=== PATIENT | male | born 2005 | race Caucasian/White ===

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

== ENCOUNTER 2023-04-05 12:58 | Emergency (ER) | payer MEDICAID ==
[~2023-04-05] VITALS: Ht 175 cm; Wt 66.0 kg
--- NOTE | 2023-04-05 13:35 | ED Integumentary General ---
"General Chief Complaint: Skin/Wound Problems Stated Complaint: RASH | POSSIBLE CHICKEN POX Nursing Triage Note: PT AMB TO RM 7 PT CO OF RASH ALL OVER BODY STATES MIGHT BE CHICKEN POX, PT STATES STARTED BREAKING OUT 3 DAYS AGO. PT CO OF LOW BACK AND THROAT PAIN. PT HAS LESIONS ALL OVER BODY INCLUDING INSIDE MOUTH AND HAIR. PT HAS NOT BEEN VACCINATED AGAINST CHICKEN POX BUT HAS HAD WHEN SMALL CHILD. PT CO OF AREAS ITCHING Source: patient, family Exam Limitations: no limitations History of Present Illness Date Seen by Provider: Apr 05, 2023 Time Seen by Provider: 13:32 Initial Comments Patient is a 17-year-old male who presents ED with mother for diffuse red burning itchy rash. Started on his abdomen with erythematous base with blisters. This has spread throughout the body. Rash is worse on the face. Reports some oral lesions with throat pain. Patient reports history of chickenpox when he was younger. Mother is up-to-date on his immunizations. Patient states he felt feverish today. He had no previous URI symptoms before the rash such as body aches, chills, cough, runny nose. Denies of any current medication. Denies of any sloughing of the skin. Denies of any dysuria, hematuria, abdominal pain, vomiting, headache, dizziness. Patient has been taken Benadryl without much improvement. Allergies and Home Medications Allergies Coded Allergies: amoxicillin (Unverified Allergy, Mild, 04/24/09) Patient Home Medication List Home Medication List Reviewed: Yes Hydroxyzine HCl (Hydroxyzine HCl) 25 Mg Tablet, 25 MG PO Q6H PRN for ITCHING Prescribed by: JACKIE MCKEON on 04/05/23 1511 Review of Systems Review of Systems Constitutional: No chills, No diaphoresis, No fever; malaise, weakness EENTM: No ear pain, No blurred vision, No double vision Respiratory: No cough, No dyspnea on exertion, No short of breath Cardiovascular: No chest pain Gastrointestinal: No abdominal pain, No diarrhea, No nausea, No vomiting Genitourinary: No decreased output, No discharge Musculoskeletal: No back pain, No joint pain, No joint swelling Skin: change in color, pruritus, rash All Other Systems Reviewed Negative Unless Noted: Yes Past Pymstyg-Owbarf-Fqmxid Hx Patient Social History Tobacco Use?: No Substance use?: No Alcohol Use?: No Immunizations Up To Date Tetanus Booster (TDap): Less than 5yrs PED Vaccines UTD: Yes Past Medical History Surgeries: Yes (PROCEDURE ON BOIL-WHEN PT. WAS 4) Respiratory: No Cardiac: No Neurological: No Reproductive Disorders: No Gastrointestinal: No Musculoskeletal: No Endocrine: No Cancer: No Psychosocial: No Integumentary: No Blood Disorders: No Family Medical History No Pertinent Family Hx Physical Exam Vital Signs Vital Signs - First Documented 04/05/23 04/05/23 13:10 15:17 Temp 38.7 Pulse 102 Resp 18 B/P (MAP) 138/84 (102) Pulse Ox 98 O2 Delivery Room Air Capillary Refill : Less Than 3 Seconds General Appearance: WD/WN, no apparent distress HEENT: PERRL/EOMI, normal ENT inspection, TMs normal, pharynx normal Neck: non-tender, full range of motion, supple Cardiovascular: regular rate, rhythm, no edema, no gallop Gastrointestinal: normal bowel sounds, soft Extremities: normal range of motion 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 No bullous. Erythematous blisters in the oropharynx. No sloughing of the skin.) Progress/Results/Core Measures Results/Orders Lab Results Laboratory Tests Test 04/05/23 14:00 04/05/23 14:39 Range/Units White Blood Count 6.2 4.3-11.0 10^3/uL Red Blood Count 4.46 4.30-5.52 10^6/uL Hemoglobin 14.2 13.3-17.7 g/dL Hematocrit 41 40-54 % Mean Corpuscular Volume 91 80-99 fL Mean Corpuscular Hemoglobin 32 25-34 pg Mean Corpuscular Hemoglobin Concent 35 32-36 g/dL Red Cell Distribution Width 12.8 10.0-14.5 % Platelet Count 86 L 130-400 10^3/uL Mean Platelet Volume 13.1 H 9.0-12.2 fL Immature Granulocyte % (Auto) 1 % Neutrophils (%) (Auto) 50 42-75 % Lymphocytes (%) (Auto) 36 12-44 % Monocytes (%) (Auto) 11 0-12 % Eosinophils (%) (Auto) 2 0-10 % Basophils (%) (Auto) 1 0-10 % Neutrophils # (Auto) 3.1 1.8-7.8 10^3/uL Lymphocytes # (Auto) 2.2 1.0-4.0 10^3/uL Monocytes # (Auto) 0.7 0.0-1.0 10^3/uL Eosinophils # (Auto) 0.1 0.0-0.3 10^3/uL Basophils # (Auto) 0.0 0.0-0.1 10^3/uL Immature Granulocyte # (Auto) 0.0 0.0-0.1 10^3/uL Neutrophils % (Manual) 45 % Lymphocytes % (Manual) 25 % Monocytes % (Manual) 15 % Eosinophils % (Manual) 0 % Basophils % (Manual) 0 % Band Neutrophils 8 % Reactive Lymphocytes 7 % Percent Immature Platelet Fraction 19.3 H 0.0-7.6 % Blood Morphology Comment NORMAL Erythrocyte Sedimentation Rate 3 0-15 MM/HR Prothrombin Time 15.2 H 12.2-14.7 SEC INR Comment 1.2 0.8-1.4 Activated Partial Thromboplast Time 38 H 24-35 SEC Sodium Level 137 135-145 MMOL/L Potassium Level 3.6 3.6-5.0 MMOL/L Chloride Level 104 98-107 MMOL/L Carbon Dioxide Level 20 L 21-32 MMOL/L Anion Gap 13 5-14 MMOL/L Blood Urea Nitrogen 13 7-18 MG/DL Creatinine 0.95 0.60-1.30 MG/DL Estimat Glomerular Filtration Rate 118 BUN/Creatinine Ratio 14 Glucose Level 91 70-105 MG/DL Calcium Level 9.1 8.5-10.1 MG/DL Corrected Calcium 8.8 8.5-10.1 MG/DL Total Bilirubin 0.6 0.1-1.0 MG/DL Aspartate Amino Transf (AST/SGOT) 79 H 5-34 U/L Alanine Aminotransferase (ALT/SGPT) 92 H 0-55 U/L Alkaline Phosphatase 57 40-136 U/L C-Reactive Protein High Sensitivity 3.24 H 0.00-0.50 MG/DL Total Protein 6.7 6.4-8.2 GM/DL Albumin 4.4 3.2-4.5 GM/DL Group A Streptococcus Screen NEGATIVE NEGATIVE My Orders Orders - AYALA,TATIANA A PA Erythrocyte Sedimentation Rate (04/05/23 13:29) Hs C Reactive Protein (04/05/23 13:29) Cbc With Automated Diff (04/05/23 13:29) Comprehensive Metabolic Panel (04/05/23 13:29) Rapid Strep A Screen (04/05/23 13:29) Partial Thromboplastin Time (04/05/23 14:50) Protime With Inr (04/05/23 14:50) Manual Differential (04/05/23 14:00) Hydroxyzine Cap/Tab (Vistaril) (04/05/23 15:00) Throat Culture Strep A Confirm (04/05/23 14:39) Medications Given in ED Current Medications Medications Dose Ordered Sig/Holly Route Start Time Stop Time Status Last Admin Dose Admin Hydroxyzine Pamoate 25 mg ONCE ONCE PO 04/05/23 15:00 04/05/23 15:01 DC 04/05/23 15:03 25 MG Vital Signs/I&O 04/05/23 04/05/23 13:10 15:17 Temp 38.7 38.7 Pulse 102 94 Resp 18 18 B/P (MAP) 138/84 (102) 127/80 Pulse Ox 98 99 O2 Delivery Room Air Blood Pressure Mean: 102 Departure Communication (PCP) Patient presents ED with mother for diffuse red itchy burning rash. Started on his abdomen has spread throughout his body. Oral lesions, felt feverish today. No vomiting, diarrhea, cough, runny nose or prodrome symptoms. Up-to-date on his immunization after talking to mother. On exam erythematous base with blisters. Few crusted lesion. Concerning for varicella associated rash. Does have oral lesions. Blisters noted to the oropharynx. No sloughing of the skin. No current medication that he takes daily. No known autoimmune disease. No obvious exposure to anybody that has been sick. On exam lesions do appear to be chickenpox with the different stages. Did give hydroxyzine for the itching. CBC, CMP and strep was ordered. Strep A was negative. Normal white blood count and red blood count. ALT 92, AST 78. Normal kidney function. Platelets 86. Suspect that this is viral due to the changes in his lab work. Discussed conservative treatment at this time. Tylenol and ibuprofen at home for pain. Will discharge with meclizine. If any worsening symptoms such as fever, unable to eat, dehydration to return back to ED. Follow-up your PCP in 2 to 3 days for reevaluation. If any bleeding, purpura to return back to ED. Slight change in his PT 15.2 and PTT 38. INR 1.2. Nonspecific but continue monitoring for DIC. Impression Primary Impression: Rash Disposition: HOME, SELF-CARE Condition: Stable Departure-Patient Inst. Decision time for Depature: 15:07 Referrals: PIERCE JUAREZ MD (PCP/Family) Primary Care Physician Patient Instructions: Skin Rash (DC) Add. Discharge Instructions: May use hydroxyzine instead of Benadryl for itching if needed. Continue with Tylenol ibuprofen or calamine lotion. If worsening symptoms such as not eating, vomiting, weakness to return back to ED. Follow-up with results of the swab. Recommend isolation All discharge instructions reviewed with patient and/or family. Voiced understanding. Scripts Hydroxyzine HCl (Hydroxyzine HCl) 25 Mg Tablet 25 MG PO Q6H PRN for ITCHING, #12 TAB Prov: TATIANA AYALA 04/05/23 TATIANA AYALA Apr 05, 2023 13:35"
[2023-04-05 14:07] LABS: BASOPHILS % (AUTO) 1 % (0-10); EOSINOPHILS # (AUTO) 0.1 10^3/uL (0.0-0.3); MEAN PLATELET VOLUME 13.1 fL (9.0-12.2)
[2023-04-05 14:09] LABS: EOSINOPHILS % (AUTO) 2 % (0-10); HEMATOCRIT 41 % (40-54); HEMOGLOBIN 14.2 g/dL (13.3-17.7); LYMPHOCYTES # (AUTO) 2.2 10^3/uL (1.0-4.0); LYMPHOCYTES % (AUTO) 36 % (12-44); MEAN CORPUSCULAR HEMOGLOBIN 32 pg (25-34); MEAN CORPUSCULAR HGB CONC 35 g/dL (32-36); MEAN CORPUSCULAR VOLUME 91 fL (80-99); MONOCYTES # (AUTO) 0.7 10^3/uL (0.0-1.0); MONOCYTES % (AUTO) 11 % (0-12); NEUTROPHILS # (AUTO) 3.1 10^3/uL (1.8-7.8); NEUTROPHILS % (AUTO) 50 % (42-75); PLATELET COUNT 86 10^3/uL (130-400); WHITE BLOOD COUNT 6.2 10^3/uL (4.3-11.0)
[2023-04-05 14:16] LABS: ALBUMIN 4.4 GM/DL (3.2-4.5)
[2023-04-05 14:17] LABS: POTASSIUM 3.6 MMOL/L (3.6-5.0)
[2023-04-05 14:18] LABS: CALCIUM 9.1 MG/DL (8.5-10.1)
[2023-04-05 14:19] LABS: TOTAL PROTEIN 6.7 GM/DL (6.4-8.2)
[2023-04-05 14:21] LABS: BILIRUBIN,TOTAL 0.6 MG/DL (0.1-1.0)
[2023-04-05 14:23] LABS: CREATININE SERUM 0.95 MG/DL (0.60-1.30)
[2023-04-05 14:52] LABS: BAND NEUTROPHILS 8 %; NEUTROPHILS % (MANUAL) 45 %
[2023-04-05 14:53] LABS: BASOPHILS % (MANUAL) 0 %; EOSINOPHILS % (MANUAL) 0 %; LYMPHOCYTES % (MANUAL) 25 %; MONOCYTES % (MANUAL) 15 %; RBC MORPH NORMAL; REACTIVE LYMPHOCYTES 7 %
[2023-04-05 14:56] LABS: ERYTHROCYTE SEDIMENTATION RATE 3 MM/HR (0-15)
[2023-04-05] MEDS ORDERED: hydrOXYzine (VISTARIL/ATARAX) 25 MG capsule/tablet PO ONE (15:00)
[2023-04-05 15:03] LABS: INR 1.2 (0.8-1.4); PROTHROMBIN TIME PATIENT 15.2 SEC (12.2-14.7)
[2023-04-05] MEDS ORDERED: HYDR-700 PO (15:11)
[2023-04-05 15:17] VITALS: BP 127/80
== END 2023-04-05 15:17 | disposition home or self-care (01) ==
LOC: EDUNIT# 12:58 → ER 13:01
DX: R21 Rash and other nonspecific skin eruption (principal); Z86.19 Personal history of other infectious and parasitic diseases
CPT/HCPCS: 36415; 80053; 85007; 85025; 85027; 85610; 85652; 85730; 86141; 87430

== ENCOUNTER 2023-04-08 17:03 | Observation (INO) | payer MEDICAID ==
[~2023-04-08] VITALS: Ht 175 cm; Wt 67.2 kg
[~2023-04-08 17:03] MED LIST changes: +HYDR-700 PO
--- NOTE | 2023-04-08 17:45 | ED Integumentary General ---
General Chief Complaint: Skin/Wound Problems Stated Complaint: RASH/POSS CHICKEN POX Nursing Triage Note: Patient reports to ED for possible "chicken pox". Patient started getting red papules since Saturday. Patient got worse on Saturday and was seen here. Patient returns today due to worsening. Patient states he has a hard time eating due to discomfort. Per patient his hands hurt. Patient ambulated to room 09. Mom and step dad at bedside. Source: patient, family Exam Limitations: no limitations (TATIANA AYALA) History of Present Illness Date Seen by Provider: Apr 08, 2023 Time Seen by Provider: 17:44 Initial Comments Patient Is a 17-year-old male who presents ED with a diffuse red burning rash. This started last Saturday on his abdomen and has spread throughout. Had a swab performed at [facility] last week. Patient has not received the results. Was seen here Saturday concern for chickenpox and recommended conservative treatment with anti-inflammatories, hydroxyzine and/or Benadryl. Patient states the rash is getting worse. Difficulty eating. Only eating popsicles. Contact his primary care physician was sent to the ED for further evaluation. Denies any vomiting, diarrhea, fever, chills, body aches, chest pain, shortness of breath, cough. (TATIANA AYALA) Allergies and Home Medications Allergies Coded Allergies: amoxicillin (Unverified Allergy, Mild, 04/24/09) Patient Home Medication List Home Medication List Reviewed: Yes (TATIANA AYALA) Hydroxyzine HCl (Hydroxyzine HCl) 25 Mg Tablet, 25 MG PO Q6H PRN for ITCHING Prescribed by: JACKIE MCKEON on 04/05/23 1511 Review of Systems Review of Systems Constitutional: No chills, No diaphoresis, No malaise, No weakness EENTM: No ear pain, No blurred vision, No double vision Respiratory: No cough, No dyspnea on exertion Cardiovascular: No chest pain Gastrointestinal: No abdominal pain, No diarrhea, No nausea, No vomiting Genitourinary: No decreased output, No discharge Musculoskeletal: No back pain, No joint pain, No joint swelling, No muscle pain Skin: change in color (TATIANA AYALA) All Other Systems Reviewed Negative Unless Noted: Yes (TATIANA AYALA) Past Pbsfrzr-Synezt-Zqkqqa Hx Patient Social History Tobacco Use?: No Use of E-Cig and/or Vaping dev: No Substance use?: No Alcohol Use?: No Pt feels they are or have been: No (TATIANA AYALA) Immunizations Up To Date Tetanus Booster (TDap): Less than 5yrs PED Vaccines UTD: Yes Influenza Vaccine Up-to-Date: Yes; Up-to-Date (TATIANA AYALA) Past Medical History Surgery/Hospitalization HX: DENIES MED. HX AND SURG. Surgeries: Yes (PROCEDURE ON BOIL-WHEN PT. WAS 4) Respiratory: No Cardiac: No Neurological: No Reproductive Disorders: No Gastrointestinal: No Musculoskeletal: No Endocrine: No Cancer: No Psychosocial: No Integumentary: No Blood Disorders: No (TATIANA AYALA) Family Medical History No Pertinent Family Hx (TATIANA AYALA) Physical Exam Vital Signs Vital Signs - First Documented 04/08/23 17:04 Temp 36.7 Pulse 78 Resp 16 B/P (MAP) 145/89 (107) Pulse Ox 99 O2 Delivery Room Air (MILTON MORALES MD) Vital Signs Capillary Refill : Less Than 3 Seconds (TATIANA AYALA) General Appearance: WD/WN, no apparent distress HEENT: PERRL/EOMI, normal ENT inspection, TMs normal, pharynx normal, other (Erythematous) Neck: non-tender, full range of motion, supple Cardiovascular: regular rate, rhythm, no edema, no gallop Respiratory: chest non-tender, lungs clear Gastrointestinal: normal bowel sounds, non tender, soft, no organomegaly Back: normal inspection, no CVA tenderness 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, no motor/sensory deficits, alert, normal mood/affect, oriented x 3 Skin: other (Erythematous circular papules with crusting in the middle.) (TATIANA AYALA) Progress/Results/Core Measures Results/Orders Lab Results Laboratory Tests Test 04/08/23 17:50 04/08/23 17:54 04/08/23 19:07 Range/Units Syphilis Serology Non-Reactive Non-Reactive White Blood Count 8.6 4.3-11.0 10^3/uL Red Blood Count 4.61 4.30-5.52 10^6/uL Hemoglobin 14.4 13.3-17.7 g/dL Hematocrit 42 40-54 % Mean Corpuscular Volume 91 80-99 fL Mean Corpuscular Hemoglobin 31 25-34 pg Mean Corpuscular Hemoglobin Concent 35 32-36 g/dL Red Cell Distribution Width 12.9 10.0-14.5 % Platelet Count 120 L 130-400 10^3/uL Mean Platelet Volume 12.9 H 9.0-12.2 fL Immature Granulocyte % (Auto) 0 % Neutrophils (%) (Auto) 33 L 42-75 % Lymphocytes (%) (Auto) 55 H 12-44 % Monocytes (%) (Auto) 10 0-12 % Eosinophils (%) (Auto) 1 0-10 % Basophils (%) (Auto) 1 0-10 % Neutrophils # (Auto) 2.9 1.8-7.8 10^3/uL Lymphocytes # (Auto) 4.7 H 1.0-4.0 10^3/uL Monocytes # (Auto) 0.9 0.0-1.0 10^3/uL Eosinophils # (Auto) 0.1 0.0-0.3 10^3/uL Basophils # (Auto) 0.1 0.0-0.1 10^3/uL Immature Granulocyte # (Auto) 0.0 0.0-0.1 10^3/uL Percent Immature Platelet Fraction 19.8 H 0.0-7.6 % Prothrombin Time 14.2 12.2-14.7 SEC INR Comment 1.1 0.8-1.4 Activated Partial Thromboplast Time 57 H 24-35 SEC Sodium Level 140 135-145 MMOL/L Potassium Level 3.7 3.6-5.0 MMOL/L Chloride Level 104 98-107 MMOL/L Carbon Dioxide Level 25 21-32 MMOL/L Anion Gap 11 5-14 MMOL/L Blood Urea Nitrogen 15 7-18 MG/DL Creatinine 0.91 0.60-1.30 MG/DL Estimat Glomerular Filtration Rate 125 BUN/Creatinine Ratio 16 Glucose Level 92 70-105 MG/DL Calcium Level 9.4 8.5-10.1 MG/DL Corrected Calcium 9.0 8.5-10.1 MG/DL Total Bilirubin 0.4 0.1-1.0 MG/DL Aspartate Amino Transf (AST/SGOT) 29 5-34 U/L Alanine Aminotransferase (ALT/SGPT) 44 0-55 U/L Alkaline Phosphatase 58 40-136 U/L Total Protein 7.4 6.4-8.2 GM/DL Albumin 4.5 3.2-4.5 GM/DL Smear Scan YES Urine Color YELLOW Urine Clarity CLOUDY Urine pH 6.0 5-9 Urine Specific [place] 1.010 L 1.016-1.022 Urine Protein TRACE H NEGATIVE Urine Glucose (UA) NEGATIVE NEGATIVE Urine Ketones 1+ H NEGATIVE Urine Nitrite NEGATIVE NEGATIVE Urine Bilirubin NEGATIVE NEGATIVE Urine Urobilinogen 1.0 < = 1.0 MG/DL Urine Leukocyte Esterase NEGATIVE NEGATIVE Urine RBC (Auto) NEGATIVE NEGATIVE Urine RBC NONE /HPF Urine WBC RARE /HPF Urine Crystals PRESENT H /LPF Urine Amorphous Sediment FEW VICKI URATES H /LPF Urine Bacteria TRACE /HPF Urine Casts NONE /LPF Urine Mucus SMALL H /LPF Urine Culture Indicated NO Urine Opiates Screen NEGATIVE NEGATIVE Urine Oxycodone Screen NEGATIVE NEGATIVE Urine Methadone Screen NEGATIVE NEGATIVE Urine Propoxyphene Screen NEGATIVE NEGATIVE Urine Barbiturates Screen NEGATIVE NEGATIVE Ur Tricyclic Antidepressants Screen NEGATIVE NEGATIVE Urine Phencyclidine Screen NEGATIVE NEGATIVE Urine Amphetamines Screen NEGATIVE NEGATIVE Urine Methamphetamines Screen NEGATIVE NEGATIVE Urine Benzodiazepines Screen NEGATIVE NEGATIVE Urine Cocaine Screen NEGATIVE NEGATIVE Urine Cannabinoids Screen POSITIVE H NEGATIVE Urine Chlamydia trachomatis RNA Not Detected Not Detected Urine Neisseria gonorrhoeae RNA Not Detected Not Detected (MILTON MORALES MD) Micro Results Microbiology 04/08/23 Gram Stain, Resulted Pending 04/08/23 Miscellaneous Microbiology Test - Preliminary, Resulted (MILTON MORALES MD) Vital Signs/I&O 04/08/23 17:04 Temp 36.7 Pulse 78 Resp 16 B/P (MAP) 145/89 (107) Pulse Ox 99 O2 Delivery Room Air 04/09/23 00:00 Intake Total 1000 ml Balance 1000 ml (MILTON MORALES MD) Blood Pressure Mean: 107 Departure Communication (PCP) Patient with a rash that started last Saturday. Started on his abdomen and has spread throughout the body. Rash on the palms of his hands soles of his feet. Rash became worse around his face was seen here Saturday had lab work drawn which showed thrombocytopenia and slight elevated liver enzymes. Was discharged with hydroxyzine and treated conservatively for a viral type rash. Patient has a pending varicella swab. Patient has no focal neural deficits, headache, dizziness or visual changes or sore throat. Negative strep last Saturday. Patient had no prodrome. No recent travels or surgeries. Mother return from [place]. He is not sexually active. Denies any drug use or alcohol use. No sloughing of the skin. On exam several the lesions are concerning for pustules. Does have flat erythematous lesions with crusting. No active vesicles. Rash last Saturday looked more like chickenpox. Slight change in the rash today compared to last. Patient is afebrile and does not appear toxic. General lab work. CBC, CMP grossly unremarkable. Normal coags. Platelets improved to 126. Improvement of liver enzymes. Received a liter of fluid. Was given Magic mouthwash. Has not been eating or drinking secondary to pain with eating. Patient does appear in pain and discomfort. Did discuss patient with Pao biostatistics teacher with [facility]. Discussed swabbing for monkeypox. Recommend continue isolation at this time. Negative pressure room. Swabs was sent to lab. Added syphilis and urinalysis with GC and chlamydia per epidemiology. Patient was not recommended to be treated with antibiotics at this time. Toradol for pain. Started on liter of fluid. (TATIANA AYALA) Impression Primary Impression: Rash Disposition: ADMITTED INPATIENT Condition: Stable Admissions Decision to Admit Reason: Admit from ER (General) Decision to Admit/Date: Apr 08, 2023 Time/Decision to Admit Time: 19:26 (TATIANA AYALA) Departure-Patient Inst. Referrals: PIERCE JUAREZ MD (PCP/Family) Primary Care Physician ATTENDING PHYSICIAN NOTE: I was physically present as attending physician in the emergency department during the care of this patient. Case was discussed with JACKIE Cisneros. I suggested contacting [facility] epidemiology to discuss testing for monkeypox and other viral illnesses. I did not personally interview or examine this patient, and I was not otherwise directly involved in the decision making or delivery of care for this patient. (MILTON MORALES MD) Copy Copies To 1: PIERCE JUAREZ MD, ZACHARY A PA Apr 08, 2023 17:45 MILTON MORALES MD Apr 09, 2023 20:47
[2023-04-08 17:58] LABS: HEMATOCRIT 42 % (40-54); HEMOGLOBIN 14.4 g/dL (13.3-17.7); MEAN CORPUSCULAR HGB CONC 35 g/dL (32-36)
[2023-04-08] MEDS ORDERED: NS IV 1000 ML 1,000 ML IV STA (17:58)
[2023-04-08 17:59] LABS: BASOPHILS # (AUTO) 0.1 10^3/uL (0.0-0.1); BASOPHILS % (AUTO) 1 % (0-10); EOSINOPHILS # (AUTO) 0.1 10^3/uL (0.0-0.3); EOSINOPHILS % (AUTO) 1 % (0-10); LYMPHOCYTES # (AUTO) 4.7 10^3/uL (1.0-4.0); LYMPHOCYTES % (AUTO) 55 % (12-44); MEAN CORPUSCULAR HEMOGLOBIN 31 pg (25-34); MEAN CORPUSCULAR VOLUME 91 fL (80-99); MEAN PLATELET VOLUME 12.9 fL (9.0-12.2); MONOCYTES # (AUTO) 0.9 10^3/uL (0.0-1.0); MONOCYTES % (AUTO) 10 % (0-12); NEUTROPHILS # (AUTO) 2.9 10^3/uL (1.8-7.8); NEUTROPHILS % (AUTO) 33 % (42-75); PLATELET COUNT 120 10^3/uL (130-400); WHITE BLOOD COUNT 8.6 10^3/uL (4.3-11.0)
[2023-04-08 18:05] LABS: ALBUMIN 4.5 GM/DL (3.2-4.5)
[2023-04-08 18:06] LABS: POTASSIUM 3.7 MMOL/L (3.6-5.0)
[2023-04-08 18:07] LABS: CALCIUM 9.4 MG/DL (8.5-10.1)
[2023-04-08 18:08] LABS: INR 1.1 (0.8-1.4); PROTHROMBIN TIME PATIENT 14.2 SEC (12.2-14.7); TOTAL PROTEIN 7.4 GM/DL (6.4-8.2)
[2023-04-08 18:10] LABS: BILIRUBIN,TOTAL 0.4 MG/DL (0.1-1.0)
[2023-04-08 18:12] LABS: CREATININE SERUM 0.91 MG/DL (0.60-1.30)
[2023-04-08 18:13] LABS: SMEAR SCAN COMMENT YES
[2023-04-08 19:15] LABS: BILIRUBIN,URINE NEGATIVE (NEGATIVE); CLARITY,URINE CLOUDY; COLOR,URINE YELLOW; GLUCOSE, URINE (UA) NEGATIVE (NEGATIVE); KETONES,URINE 1+ (NEGATIVE); LEUKOCYTE ESTERASE ,URINE NEGATIVE (NEGATIVE); NITRITE,URINE NEGATIVE (NEGATIVE); PROTEIN,URINE TRACE (NEGATIVE)
[2023-04-08 19:24] LABS: WBC,URINE RARE /HPF
[2023-04-08 19:25] LABS: BACTERIA,URINE TRACE /HPF
[2023-04-08 19:26] LABS: AMORPHOUS SEDIMENT,UR FEW AMOR URATES /LPF
[2023-04-08 19:29] LABS: AMPHETAMINE SCREEN, URINE NEGATIVE (NEGATIVE); BARBITURATE SCREEN URINE NEGATIVE (NEGATIVE); BENZODIAZEPINES SCREEN URINE NEGATIVE (NEGATIVE); CANNABINOID SCREEN, URINE POSITIVE (NEGATIVE); COCAINE SCREEN URINE NEGATIVE (NEGATIVE); METHADONE STAT NEGATIVE (NEGATIVE); OPIATE SCREEN URINE NEGATIVE (NEGATIVE); OXYCODONE STAT NEGATIVE (NEGATIVE); PROPOXYPHENE STAT NEGATIVE (NEGATIVE); TRICYCLIC ANTIDEPRESSANTS SCRE NEGATIVE (NEGATIVE)
[2023-04-08] MEDS ORDERED: MAGIC MOUTHWASH (ADULT) PO SCH ×4 (21:00)
[2023-04-08] MEDS ORDERED: MAGIC MOUTHWASH, ADULT 155 ML BOTTLE PO SCH (21:00)
[2023-04-08 21:20] VITALS: BP 131/70
[2023-04-08] MEDS ORDERED: KETOROLAC 30 MG/ML VIAL IV PRN (22:45)
[2023-04-08] MEDS ORDERED: CATHETER FLUSH 10 ML SYR IVP PRN (22:45)
[2023-04-08] MEDS: NS IV 1000 ML 1,000 ML IV SCH (22:47)
[2023-04-08 23:05] VITALS: BP 127/60
[2023-04-09 04:00] VITALS: BP 126/63
[2023-04-09] MEDS: CATHETER FLUSH 10 ML SYR IVP SCH ×2 (04:52→14:00)
[2023-04-09] MEDS: NS IV 1000 ML 1,000 ML IV SCH ×2 (05:16→14:27)
[2023-04-09 06:09] LABS: BASOPHILS % (AUTO) 1 % (0-10); EOSINOPHILS % (AUTO) 2 % (0-10); MEAN PLATELET VOLUME 13.3 fL (9.0-12.2)
[2023-04-09 06:11] LABS: EOSINOPHILS # (AUTO) 0.1 10^3/uL (0.0-0.3); HEMATOCRIT 36 % (40-54); HEMOGLOBIN 12.4 g/dL (13.3-17.7); LYMPHOCYTES # (AUTO) 3.5 10^3/uL (1.0-4.0); LYMPHOCYTES % (AUTO) 56 % (12-44); MEAN CORPUSCULAR HEMOGLOBIN 31 pg (25-34); MEAN CORPUSCULAR HGB CONC 34 g/dL (32-36); MEAN CORPUSCULAR VOLUME 91 fL (80-99); MONOCYTES # (AUTO) 0.7 10^3/uL (0.0-1.0); MONOCYTES % (AUTO) 11 % (0-12); NEUTROPHILS # (AUTO) 1.9 10^3/uL (1.8-7.8); NEUTROPHILS % (AUTO) 30 % (42-75); PLATELET COUNT 118 10^3/uL (130-400); WHITE BLOOD COUNT 6.3 10^3/uL (4.3-11.0)
[2023-04-09 06:27] LABS: CALCIUM 8.6 MG/DL (8.5-10.1); CREATININE SERUM 0.79 MG/DL (0.60-1.30); POTASSIUM 3.7 MMOL/L (3.6-5.0)
--- NOTE | 2023-04-09 07:32 | History & Physicial ---
History of Present Illness History of Present Illness Reason for visit/HPI Gary is an 16-year-old male who presents to emergency department for the second time this last week with a rash. The rash has been apparently getting worse since the last visit. He describes being unable to swallow both liquids and solids. He did have a fever earlier in the course of his illness but this is pretty much resolved now. As a child clinically he had chickenpox but apparently no vaccination. Gary reports not working currently and he has not going to school. He basically stays at home and plays a lot of games on the television/computer. He has not had anybody over that had any unusual rashes. There is no reports of diarrhea Date of Admission Apr 08, 2023 at 20:08 Date Seen by a Provider: Apr 09, 2023 Time Seen by a Provider: 06:45 I consulted on this patient on 04/09/23 07:27 Attending Physician Pierce Juarez MD Admitting Physician Admitting Physician: Pierce Juarez MD Attending Physician: Pierce Juarez MD Consult Allergies and Home Medications Allergies Coded Allergies: amoxicillin (Unverified Allergy, Mild, 04/24/09) Patient Home Medication List Home Medication List Reviewed: Yes Hydroxyzine HCl (Hydroxyzine HCl) 25 Mg Tablet, 25 MG PO Q6H PRN for ITCHING Prescribed by: JACKIE MCKEON on 04/05/23 1511 Past Hcfrmhd-Aoaoqk-Uiyfrr Hx Patient Social History Marrital Status: single 2nd Hand Smoke Exposure: Yes Recent Hopitalizations: No Alcohol Use?: No Pt feels they are or have been: No Immunizations Up To Date Tetanus Booster (TDap): Less than 5yrs Pediatric: Yes Surgeries Yes (PROCEDURE ON BOIL-WHEN PT. WAS 4) Respiratory No Cardiovascular No Neurological No Reproductive System Hx Reproductive Disorders: No Gastrointestinal No Musculoskeletal No Endocrine History of Endocrine Disorders: No Cancer No Psychosocial History of Psychiatric Problem: No Integumentary History of Skin or Integumenta: No Blood Transfusions History of Blood Disorders: No Family Medical History Significant Family History: No Pertinent Family Hx Review of Systems Constitutional: see HPI Physical Exam Vital Signs Vital Signs - First Documented 04/08/23 17:04 Temp 36.7 Pulse 78 Resp 16 B/P (MAP) 145/89 (107) Pulse Ox 99 O2 Delivery Room Air Capillary Refill : Less Than 3 Seconds Height, Weight, BMI Height: 5'6.00" Weight: 155lbs. 4oz. [id number]; 21.94 BMI Method:Stated General Appearance: No Apparent Distress Eyes: Bilateral Eye Normal Inspection HEENT: Other (Pharynx does have a few vesicular lesions on the inner aspects of lips) Neck: Supple Respiratory: Lungs Clear Cardiovascular: Regular Rate, Rhythm Gastrointestinal: Soft Rectal: Deferred Skin: Other (Patient has multiple discrete vesicular lesions pretty much of the same size scattered over The trunk, extremities as well as face.) Assessment/Plan Assessment and Plan 1. Dehydration and this is secondary to viral illness that has affected his esophagus -intravenous fluids normal saline at 125 cc/h after bolus was given in ED -We will encourage oral intake of bland diet as well as water 2. Severe viral rash chickenpox high in differential. -Several swabs have been taken of the skin lesions and sent to laboratory as well as to the state. -ED provider has talked to individual at [facility]. Admission Diagnosis 1. Dehydration and this is secondary to viral illness that has affected his esophagus 2. Severe viral rash chickenpox high in differential. Admission Status: Observation PIERCE JUAREZ MD Apr 09, 2023 07:32
[2023-04-09 07:44] VITALS: BP 132/59
[2023-04-09] MEDS ORDERED: MAGIC MOUTHWASH, ADULT 155 ML BOTTLE PO PRN (09:00)
[2023-04-09] MEDS: MAGIC MOUTHWASH (ADULT) PO SCH ×8 (09:40→13:27)
[2023-04-09 11:53] VITALS: BP 127/65
--- NOTE | 2023-04-09 14:59 | Discharge Inst-Simple/Standard ---
Discharge Inst-Standard Reconcile Patient Problems Problems Reviewed?: Yes Discharge Medications New, Converted or Re-Newed RX: Other Patient Instructions/Follow Up Plan of Care/Instructions/FU: May take Magic mouthwash 4 times a days as needed Activity as Tolerated: Yes Discharge Diet: Regular Diet (But bland and avoid spiciness) Return to The Hospital For: Unable to hold down fluids or worsening condition PIERCE JUAREZ MD Apr 09, 2023 14:59
[2023-04-09 16:00] VITALS: BP 127/65
== END 2023-04-09 16:00 | disposition home or self-care (01) ==
LOC: EDUNIT# 17:03 → ER 17:04 → 4TH 20:08 → UNDOADMOB 20:08 → 4TH 21:12 → UNDODISOB 04-09 16:00
PROVIDERS: ADMIT Family Medicine; ATTEND Family Medicine
DX: E86.0 Dehydration (principal); B01.9 Varicella without complication; Z28.310 Unvaccinated for COVID-19; Z77.22 Contact with and (suspected) exposure to environmental tobacco smoke (acute) (chronic)
CPT/HCPCS: 80048; 80053; 80306; 81000; 85025 ×2; 85610; 85730; 86780; 87205; 87491; 87591; 99284; G0378; 36415